=== PATIENT | female | born 1990 | race Caucasian/White ===

== ENCOUNTER 2024-07-25 19:40 | Emergency (ER) | payer OTHER ==
[~2024-07-25] VITALS: Ht 160 cm; Wt 81.6 kg
[2024-07-25 20:52] VITALS: TEMP 98.2
[2024-07-25 21:22] LABS: APPEARANCE,URINE CLEAR (CLEAR); BILIRUBIN,URINE Negative (NEGATIVE); BLOOD, URINE Moderate Ery/uL (NEGATIVE); COLOR,URINE YELLOW (YELLOW); KETONES,URINE Negative (NEGATIVE); LEUKOCYTE ESTERASE ,URINE Negative (NEGATIVE); PROTEIN,URINE Negative (NEGATIVE); UGLUCOSE Negative (NEGATIVE); UROBILINOGEN,URINE 0.2 EU/dL (0.2)
[2024-07-25 21:25] LABS: NITRITE, URINE NEGATIVE (NEGATIVE); PREGNANCY TEST URINE QUAL NEGATIVE (NEGATIVE)
[2024-07-25 21:26] LABS: ADD URINE CULTURE NO; BACTERIA,URINE Few /HPF (None Seen); CALCIUM OXALATE CRYSTALS,UR Rare /HPF (None Seen); SQUAMOUS EPITHELIAL CELL,UR Few /HPF (None Seen)
[2024-07-25 21:40] LABS: BASOPHILS # (AUTO) 0.1 K/uL (0.0-0.2); BASOPHILS % (AUTO) 1.2 % (0.0-2.0); EOSINOPHILS # (AUTO) 0.1 K/uL (0.0-0.7); EOSINOPHILS % (AUTO) 0.9 % (0.0-6.0); HEMATOCRIT 38 % (33-45); HEMOGLOBIN 12.7 g/dL (11.5-14.8); LYMPHOCYTES # (AUTO) 1.5 K/uL (0.8-4.8); LYMPHOCYTES % (AUTO) 19.2 % (20.0-44.0); MEAN CORPUSCULAR HEMOGLOBIN 29 PG (26.0-33.0); MEAN CORPUSCULAR HGB CONC 34 g/dl (31.0-36.0); MEAN CORPUSCULAR VOLUME 87 fL (82-100); MONOCYTES # (AUTO) 0.3 K/uL (0.1-1.30); MONOCYTES % (AUTO) 3.5 % (2.0-12.0); NEUTROPHILS # (AUTO) 5.9 K/uL (1.8-8.9); NEUTROPHILS % (AUTO) 75.2 % (43.0-81.0); PLATELET COUNT (AUTO) 336 K/uL (150-450); RED BLOOD CELL COUNT(AUTO) 4.35 MIL/uL (4.0-5.2); RED CELL DISTRIBUTION WIDTH 13.4 % (11.5-15.0); WHITE BLOOD COUNT (AUTO) 7.8 K/uL (4.3-11.0)
[2024-07-25] MEDS ORDERED: KETOROLAC TROMETHAMINE 15 MG/ML VIAL ONE (21:45)
[2024-07-25 21:47] LABS: CREATININE 0.8 mg/dL (0.6-1.3); POTASSIUM 4.1 mmol/L (3.5-5.1)
[2024-07-25] MEDS: KETOROLAC TROMETHAMINE 15 MG/ML VIAL IV ONE (21:48)
[2024-07-25] MEDS ORDERED: IBUP-1953 PO (22:57)
[2024-07-25 23:07] VITALS: BP 118/74; O2SAT 97
== END 2024-07-25 23:07 | disposition home or self-care (01) ==
LOC: ER 19:53
DX: N94.89 Other specified conditions associated with female genital organs and menstrual cycle (principal); J45.909 Unspecified asthma, uncomplicated; Z90.49 Acquired absence of other specified parts of digestive tract; Z90.89 Acquired absence of other organs
CPT/HCPCS: 99285; 96374; 76856; 85025; 80048; 84703; 81001; 36415; J1885; 87086-TC